=== PATIENT | female | born 1975 | race Caucasian/White ===

== ENCOUNTER 2017-07-18 13:24 | Inpatient (IN) | payer SELFPAY ==
[2017-07-18] MEDS ORDERED: Haloperidol Lactate 5 mg/mL 1mL Vial ONE ×2 (13:43→19:42)
[2017-07-18 13:55] LABS: HEMATOCRIT 45.3 % (41.0-60); HEMOGLOBIN 15.8 gm/dL (12-16); MEAN CELL VOLUME 90.4 fl (81-100); MEAN CORPUSCULAR HEMOGLOBIN 31.4 pg (27.0-31.0); MEAN CORPUSCULAR HGB CONC 34.8 pg (28.0-36.0); MEAN PLATELET VOLUME 9.8 fl; PLATELET COUNT 221 Th/cmm (150-400); RED BLOOD COUNT 5.01 Mil/cmm (3.80-5.10); RED CELL DISTRIBUTION WIDTH 12.9 % (11.5-20.0)
--- NOTE | 2017-07-18 13:57 | ED Physician Chart ---
ED Chief Complaint/HPI - Patient Information Date Seen:: 07/18/17 Time Seen:: 13:56 Chief Complaint:: Suicidal attempt History of Present Illness:: 41 yo female was brought in by police due to her suicidal attempts at home. The patient has multiple scratches and cuts on legs and wrists. There are 2 fresh lacerations on her left forearms and a few other wounds that are healed old wounds due to possible previous suicidal attempts. At ER the patient is hypertensive and tachycardiac. The patient is being placed on a 5150 hold by police. Allergies:: Allergies Allergy/AdvReac Type Severity Reaction Status Date / Time No Known Allergies Allergy Verified 07/18/17 13:34 Vitals:: Vital Signs - 8 hr 07/18/17 13:34 Temp 97.8 F HR 128 RR 15 BP 165/106 O2 Sat % 98 ED Review of Systems - Review of Systems General/Constitutional: No fever, No chills Skin: Skin lesions Head: No headache Eyes: No loss of vision ENT: No nasal drainage Neck: No neck pain Cardio Vascular: No chest pain Pulmonary: No SOB GI: No nausea, No vomiting Musculoskeletal: No muscle pain ED Past Medical History - Past Medical History Past Medical History: HTN Social History: Smoker, Alcohol Family Medical History - Family Member Mother History Unknown: Yes ED Physical Exam - Physical Examination General/Constitutional: Awake, Alert Other Gen/Cons comments:: Verbally aggressive Head: Atraumatic Eyes: PERRL, EOMI Skin: No ecchymosis Other Skin comments:: Left anterior forearm lacerations ENMT: Nasal exam nl Neck: No nuchal rigidity Respiratory: Clear to Auscultation, No Wheeze/Rhonchi/Rales Cardio Vascular: RRR, No murmur, gallop, rubs, NL S1 S2 GI: No tenderness/rebounding/guarding Extremities: normal strength in all extremities Other Extremities comments:: Left forearm 2 lacerations, 3cm, 4cm Neuro/Psych: No focal deficits ED Assessment - Assessment General Assessment: Suicidal attempts Left forearm lacerations Leukocytosis Hypokalemia Critical Care Time: 60 min Excludes all billable procedures: Yes This condition life threatening/high prob of deterioration: No Location:: Left anterior forearm Laceration Type:: Simple Wound Length: 4 cm (second laceration 3 cm) Prep/Irrigation:: NS, Hydrogen peroxide, betadine Comments: First laceration received 2 horizontal mattress sutures Second laceration received 2 horizontal mattress sutures ED Septic Shock - . Is Septic Shock (SBP<90, OR Lactate>4 mmol\L) present?: No - <6hrs of presentation: Vital Signs: Vital Signs - 8 hr 07/18/17 13:34 Temp 97.8 F HR 128 RR 15 BP 165/106 O2 Sat % 98 ED Reassessment (Disposition) - Reassessment Reassessment Condition:: Improved - Patient Disposition Discharge/Transfer:: Acute Care w/in this hosp Admitting Medical Physician:: Alda Ram ED Discharge Plan - Patient Disposition Admit/Discharge/Transfer: Acute Care w/in this [facility]
[2017-07-18 14:16] LABS: ALB/GLOB RATIO 1.5 (1.0-1.8); ALKALINE PHOSPHATASE 72 U/L (34-104); ANION GAP 11.8 (7.0-16.0); BILIRUBIN,TOTAL 0.5 mg/dL (0.3-1.0); BUN - UREA NITROGEN 14 mg/dL (7-25); BUN/CREATININE RATIO 15.6; CALCIUM SERUM 9.3 mg/dL (8.6-10.3); CARBON DIOXIDE 22.5 mEq/L (21.0-31.0); CHLORIDE 107 mEq/L (98-107); CREATININE - SERUM 0.9 mg/dL (0.6-1.2); GLUCOSE 166 mg/dL (70-105); LIPASE 8 U/L (11-82); POTASSIUM SERUM 3.3 mEq/L (3.5-5.1); SGOT 12 U/L (13-39); SGPT/ALT 12 U/L (7-52); SODIUM SERUM 138 mEq/L (136-145)
[2017-07-18 14:17] LABS: BAND NEUTROPHILE 3 % (0-10); NEUTROPHILS 67 % (40-80)
[2017-07-18] MEDS ORDERED: Bacitracin pkt 1 gm Pkt TP ONE (14:44)
[2017-07-18] MEDS ORDERED: Haloperidol Lactate 5 mg/mL 1mL Vial IM PRN (19:20)
[2017-07-18] MEDS ORDERED: Haloperidol Lactate 5 mg/mL 1mL Vial IM STA (19:37)
[2017-07-19] MEDS ORDERED: KCL 20mEq/100mL Premix 20 MEQ/100 ML PIGGYBACK IV ONE (00:15)
[2017-07-19] MEDS: D5-0.45NS 1,000 ML IV SCH (00:15)
[2017-07-19] MEDS ORDERED: Influenza Vaccine 0.5 mL Syr IM ONE (02:02)
[2017-07-19 06:32] LABS: % BASOPHILS 0.9 % (0.0-2.0); % EOSINOPHILS 1.3 % (0.0-5.0); % LYMPHOCYTES 19.4 % (20.0-50.0); % MONOCYTES 8.5 % (2.0-10.0); % NEUTROPHILS 69.9 % (40.0-80.0); HEMATOCRIT 43.5 % (41.0-60); HEMOGLOBIN 14.6 gm/dL (12-16); MEAN CELL VOLUME 91.3 fl (81-100); MEAN CORPUSCULAR HEMOGLOBIN 30.7 pg (27.0-31.0); MEAN CORPUSCULAR HGB CONC 33.6 pg (28.0-36.0); NEUTROPHILE ABSOLUTE 6.3 Th/cmm (1.8-8.0); PLATELET COUNT 184 Th/cmm (150-400); RED BLOOD COUNT 4.76 Mil/cmm (3.80-5.10); RED CELL DISTRIBUTION WIDTH 12.9 % (11.5-20.0)
[2017-07-19 06:50] LABS: ANION GAP 8.6 (7.0-16.0); BUN - UREA NITROGEN 12 mg/dL (7-25); BUN/CREATININE RATIO 17.1; CALCIUM SERUM 9.1 mg/dL (8.6-10.3); CHLORIDE 109 mEq/L (98-107); CHOLESTEROL 157 mg/dL (<200); CREATININE - SERUM 0.7 mg/dL (0.6-1.2); POTASSIUM SERUM 4.6 mEq/L (3.5-5.1); SODIUM SERUM 137 mEq/L (136-145); TRIGLYCERIDES 76 mg/dL (<150)
[2017-07-19 07:23] LABS: GLUCOSE 114 mg/dL (70-105)
--- NOTE | 2017-07-19 10:00 | History & Physical ---
ADMIT DATE: 07/19/2017 CHIEF COMPLAINT: Suicidal ideation. HISTORY OF PRESENT ILLNESS: This is a 41-year-old female who was brought in to the Emergency Room accompanied by police officers due to suicidal ideation and suicidal at times. REVIEW OF SYSTEMS: GENERAL: This is a 41-year-old female that appears her stated age. Denies any fever. HEAD: Denies any dizziness. Denies any headache. EYES: Denies any eye pain. Denies any blurring of vision. NECK: Denies any neck pain. Denies any nuchal rigidity. CARDIOVASCULAR: Denies any chest pain, denies palpitation. RESPIRATORY: Denies any shortness of breath. Denies coughing. GASTROINTESTINAL: Denies abdominal pain. Denies constipation. Denies diarrhea. MUSCULOSKELETAL: Denies any joint pain or muscle pain. SOCIAL HISTORY: The patient lives at home with . FAMILY HISTORY: Unremarkable. PAST SURGICAL HISTORY: Unremarkable. PAST MEDICAL HISTORY: Currently unknown. The patient is not cooperative during the interview. PHYSICAL EXAMINATION: VITAL SIGNS: Temperature 97.3, heart rate 76, blood pressure is 107/74, respiration of 18, 100% on room air. HEENT: Head is atraumatic, normocephalic. Eyes: Bilateral conjunctivae are clear. Bilateral pupils are equally round and reactive. NECK: Supple. No JVD. CARDIOVASCULAR: S1 and S2, without murmur. PULMONARY: Clear to auscultation. GASTROINTESTINAL: Soft and nontender without guarding. Positive bowel sounds. MUSCULOSKELETAL: No clubbing, no cyanosis noted. ASSESSMENT: 1. Suicidal ideation. 2. Major depression disorder. 3. Left forearm laceration. PLAN: We will keep the patient inpatient to medical/surgical unit. We will continue 1:1 supervision. We will consult with a psychiatrist to monitor and manage the patient's condition and behavior. We will do medication reconciliation as needed. Treatment plans were discussed with the patient's nurse. Treatment plans were discussed with Dr. Ram. JOB# [id number]
[2017-07-19 20:41] LABS: URINE BILIRUBIN NEGATIVE (NEGATIVE); URINE BLOOD TRACE (NEGATIVE); URINE GLUCOSE (UA) NEGATIVE (NEGATIVE); URINE KETONE NEGATIVE (NEGATIVE); URINE PROTEIN TRACE mg/dL (NEGATIVE); URINE UROBILINOGEN 0.2 E.U./dL (0.2 - 1.0)
[2017-07-19 20:48] LABS: URINE BACTERIA FEW /hpf (NONE SEEN); URINE COLOR YELLOW; URINE EPITHELIAL CELLS MODERATE /lpf (FEW)
--- NOTE | 2017-07-19 21:52 | History & Physical ---
ADMIT DATE: 07/19/2017 PHYSICIAN REQUESTING CONSULTATION: Dr. Ram. REASON FOR CONSULTATION: Depression. HISTORY OF PRESENT ILLNESS: This patient is a 41-year-old woman admitted here on a 5150 by the [facility]. The patient at this time is sleeping and is not providing much of information, most of the information has to be obtained by talking to the staff members and reviewing the admission papers. As per the admission papers, the patient's juvenile daughter has called the police stating that the mother has cut her wrist and the legs and the patient has been brought to the Emergency Room on a 5150 as a danger to self. PAST PSYCHIATRIC HISTORY: Details are not known. MEDICAL HISTORY: Details are not known and I am trying to interview the patient, but the patient is not getting out of sleep and as per the staff, the patient has been sleeping since this morning without having any lunch. The patient's blood work has been reviewed and ethanol level is only 8 and I do not have the urine drug screen results. PAST PSYCHIATRIC HISTORY: Details are not known. LEGAL PROBLEMS: None at this time. STRENGTHS AND ASSETS: The patient is not providing much of information. MENTAL EXAMINATION: The patient is a 41-year-old, looking her stated age, superficially cooperative. Eye contact is poor. Mood is irritable. Affect is constricted. Insight and judgment at this time are to be impaired. Impulse control is noted to be poor. The patient has cut upon her wrists and legs and the patient's behavior is danger to self. The patient is not homicidal. Details about the patient's psychosis could not be elicited at this time. DIAGNOSTIC IMPRESSION: AXIS I: Major depressive disorder. This is going to be provisional. AXIS II: None. AXIS III: As per Dr. Ram. PLAN: The patient is going to be continued on 1:1 observation. The patient is going to be assessed for the need for the antidepressant medications. ESTIMATED LENGTH OF STAY: Two-three days. DISCHARGE CRITERIA: When she no longer is a threat to self or others and be able to cope up with the stress. JOB# [id number]
[2017-07-20] MEDS: D5-0.45NS 1,000 ML IV SCH (03:58)
--- NOTE | 2017-07-20 10:55 | General Progress Note ---
Subjective - Review of Systems Events since last encounter: patient awake admitted for depression with si Objective - Results Result Diagrams: 07/19/17 06:07 07/19/17 06:07 Recent Labs: Laboratory Last Values WBC 9.0 Th/cmm (4.8-10.8) D 07/19/17 06:07 RBC 4.76 Mil/cmm (3.80-5.10) 07/19/17 06:07 Hgb 14.6 gm/dL (12-16) 07/19/17 06:07 Hct 43.5 % (41.0-60) 07/19/17 06:07 MCV 91.3 fl (81-100) 07/19/17 06:07 MCH 30.7 pg (27.0-31.0) 07/19/17 06:07 MCHC Differential 33.6 pg (28.0-36.0) 07/19/17 06:07 RDW 12.9 % (11.5-20.0) 07/19/17 06:07 Plt Count 184 Th/cmm (150-400) 07/19/17 06:07 MPV 10.0 fl 07/19/17 06:07 Neutrophils % 69.9 % (40.0-80.0) 07/19/17 06:07 Band Neutrophils % 3 % (0-10) 07/18/17 13:48 Lymphocytes % 19.4 % (20.0-50.0) L 07/19/17 06:07 Monocytes % 8.5 % (2.0-10.0) 07/19/17 06:07 Eosinophils % 1.3 % (0.0-5.0) 07/19/17 06:07 Basophils % 0.9 % (0.0-2.0) 07/19/17 06:07 Neutrophils (Manual) 67 % (40-80) 07/18/17 13:48 Lymphocytes 23 % (20-50) 07/18/17 13:48 Monocytes 7 % (2-10) 07/18/17 13:48 Sodium 137 mEq/L (136-145) 07/19/17 06:07 Potassium 4.6 mEq/L (3.5-5.1) 07/19/17 06:07 Chloride 109 mEq/L (98-107) H 07/19/17 06:07 Carbon Dioxide 24.0 mEq/L (21.0-31.0) 07/19/17 06:07 Anion Gap 8.6 (7.0-16.0) 07/19/17 06:07 BUN 12 mg/dL (7-25) 07/19/17 06:07 Creatinine 0.7 mg/dL (0.6-1.2) 07/19/17 06:07 Est GFR ( Amer) > 60.0 ml/min (>90) 07/19/17 06:07 Est GFR (Non-Af Amer) > 60.0 ml/min 07/19/17 06:07 BUN/Creatinine Ratio 17.1 07/19/17 06:07 Glucose 114 mg/dL (70-105) H D 07/19/17 06:07 Calcium 9.1 mg/dL (8.6-10.3) 07/19/17 06:07 Total Bilirubin 0.5 mg/dL (0.3-1.0) 07/18/17 13:48 GGTP 20 IU/L (0-60) 07/18/17 13:48 AST 12 U/L (13-39) L 07/18/17 13:48 ALT 12 U/L (7-52) 07/18/17 13:48 Alkaline Phosphatase 72 U/L (34-104) 07/18/17 13:48 Total Protein 7.1 gm/dL (6.0-8.3) 07/18/17 13:48 Albumin 4.2 gm/dL (3.7-5.3) 07/18/17 13:48 Globulin 2.9 gm/dL 07/18/17 13:48 Albumin/Globulin Ratio 1.5 (1.0-1.8) 07/18/17 13:48 Triglycerides 76 mg/dL (<150) 07/19/17 06:07 Cholesterol 157 mg/dL (<200) 07/19/17 06:07 LDL Cholesterol Direct 106 mg/dL (75-193) 07/19/17 06:07 HDL Cholesterol 45 mg/dL (23-92) 07/19/17 06:07 Lipase 8 U/L (11-82) L 07/18/17 13:48 TSH 1.53 uIU/ml (0.34-5.60) 07/19/17 06:07 Urine Source CLEAN C 07/19/17 20:15 Urine Color YELLOW 07/19/17 20:15 Urine Clarity HAZY (CLEAR) 07/19/17 20:15 Urine pH 6.0 (4.6 - 8.0) 07/19/17 20:15 Ur Specific Chambers >= 1.030 (1.005-1.030) 07/19/17 20:15 Urine Protein TRACE mg/dL (NEGATIVE) 07/19/17 20:15 Urine Glucose (UA) NEGATIVE mg/dL (NEGATIVE) 07/19/17 20:15 Urine Ketones NEGATIVE mg/dL (NEGATIVE) 07/19/17 20:15 Urine Blood TRACE (NEGATIVE) 07/19/17 20:15 Urine Nitrate NEGATIVE (NEGATIVE) 07/19/17 20:15 Urine Bilirubin NEGATIVE (NEGATIVE) 07/19/17 20:15 Urine Urobilinogen 0.2 E.U./dL (0.2 - 1.0) 07/19/17 20:15 Ur Leukocyte Esterase NEGATIVE (NEGATIVE) 07/19/17 20:15 Urine RBC 5-10 /hpf (0-5) H 07/19/17 20:15 Urine WBC 2-5 /hpf (0-5) 07/19/17 20:15 Ur Epithelial Cells MODERATE /lpf (FEW) 07/19/17 20:15 Urine Bacteria FEW /hpf (NONE SEEN) 07/19/17 20:15 Urine Mucus MANY /lpf (FEW) 07/19/17 20:15 Ethyl Alcohol < 10 mg/dL (0-10) 07/18/17 13:48 RPR NONREACTIVE (NONREACTIVE) 07/18/17 13:48 - Physical Exam Vitals and I&O: Vital Signs Temp 98.0 F 07/20/17 05:00 Pulse 86 07/20/17 05:00 Resp 19 07/20/17 05:00 BP 121/88 07/20/17 05:00 Pulse Ox 97 07/20/17 05:00 Intake & Output 07/19/17 07/20/17 07/20/17 18:59 06:59 18:59 Intake Total 1207.5 Balance 1207.5 Weight (lbs) 66.723 kg Intake: Intake, IV Amount 1107.5 D5-0.45NS 1,000 ml @ 50 1107.5 mls/hr IV .Q20H CARRIE Rx#: [id number] Oral 100 Other: # Voids 0 # Bowel Movements 0 Active Medications: Current Medications Citalopram Hydrobromide (Celexa) 20 mg PO DAILY CARRIE PRN Reason: Protocol Stop: 09/18/17 08:59 Last Admin: 07/20/17 08:45 Dose: 20 mg Dextrose/Sodium Chloride (D5-0.45ns) 1,000 mls @ 50 mls/hr IV .Q20H CARRIE Stop: 09/17/17 00:14 Last Infusion: 07/20/17 06:07 Dose: 50 mls/hr Lorazepam (Ativan) 1 mg IVP Q4HR PRN; Protocol PRN Reason: Agitation Stop: 09/17/17 00:13 Last Admin: 07/19/17 03:47 Dose: 1 mg - Procedures Procedures: Procedures Procedure Code Date C.A.T. SCAN OF HEAD 87.03 11/14/99 CT HEAD/BRAIN W/O DYE 40707 11/14/99
[2017-07-20] MEDS ORDERED: Hydrocodone/APAP 5mg/325mg Tab PO PRN (23:47)
--- NOTE | 2017-07-21 02:44 | Progress Notes ---
DATE: 07/20/2017 Staff was spoken to. The patient is interviewed. Mood is noted to be irritable. Affect is constricted. The patient is still insisting on having her ____ and wanted to look for something to hurt herself. The patient is not ready to be discharged to a lower level of care. No side effects to the Celexa are noted at this time. ASSESSMENT: The patient is still depressed and suicidal. PLAN: To continue the patient with the supportive therapy, encouraged the patient to verbalize the concerns rather than to act out. JOB# [id number]
--- NOTE | 2017-07-21 23:04 | Progress Notes ---
DATE: 07/21/2017 SUBJECTIVE: Staff was spoken to. The patient is interviewed. The patient's has been spoken to on 07/20/2017. The patient is stating that she could not feel it out why she acted this way. The patient is stating that she never had any counseling nor had any psychiatric reasons and she states that she could not bear it out. Coping skills at this time noted to be improving. Insight and judgment are noted to be fair. The patient is not suicidal or homicidal. ASSESSMENT: The patient is stabilizing. PLAN: To discharge the patient after the 72-hour hold is up and the patient is strongly encouraged to seek treatment on an outpatient basis. JOB# [id number]
== END 2017-07-21 12:30 | disposition home or self-care (01) | DRG 605 ==
LOC: ER 13:24 → MSI 23:55
PROVIDERS: ADMIT Internal Medicine; ATTEND Internal Medicine
PROC: 0HQEXZZ Repair Left Lower Arm Skin, External Approach (ICD-10-PCS; principal; 2017-07-18)
DX: S51.812A Laceration without foreign body of left forearm, initial encounter (principal); R45.851 Suicidal ideations; E87.6 Hypokalemia; I10 Essential (primary) hypertension; F17.210 Nicotine dependence, cigarettes, uncomplicated; R00.0 Tachycardia, unspecified; F32.9 Major depressive disorder, single episode, unspecified
CPT/HCPCS: 12002; 36415-UA; 80048-TC; 80053-TC; 80061-TC; 80320-TC; 81001-TC; 82977-90; 83690-TC; 84443-TC; 85007-TC; 85025-TC; 85027-TC; 86592-TC; 87086-90; A4217; J1200; J1630; J2060; J3480; Z7502; Z7610